=== PATIENT | female | born 1940 | race Caucasian/White ===

== ENCOUNTER 2017-09-17 14:02 | Outpatient (CLI) | payer MEDICARE ==
[~2017-09-17 14:02] MED LIST: DIPH-423 PO; FLUT16SP18 NS; IBUP-1573 PO; OMEP40CA37 PO
== END 2017-09-17 23:59 | disposition home or self-care (01) ==
LOC: CARD DIAG 14:02
PROVIDERS: ATTEND Family Medicine
DX: I08.3 Combined rheumatic disorders of mitral, aortic and tricuspid valves (principal); Z90.710 Acquired absence of both cervix and uterus
CPT/HCPCS: 93306

== ENCOUNTER 2017-09-19 08:10 | Outpatient (CLI) | payer MEDICARE ==
[2017-09-19] VITALS (8 sets, daily range): BP systolic 109–150; BP diastolic 56–78
[~2017-09-19] VITALS: Ht 170.2 cm; Wt 63.6 kg
[2017-09-19] MEDS ORDERED: normal saline 500ml IV soln 500 ML IV ONE (09:10)
[2017-09-19] MEDS ORDERED: regadenoson 0.4mg/5ml syringe IV ONE ×2 (09:10→10:22)
[2017-09-19] MEDS ORDERED: atropine 0.1mg/ml 10ml syringe IV PRN (09:15)
[2017-09-19] MEDS ORDERED: metoprolol tartrate 1mg/ml inj IV PRN (09:15)
[2017-09-19] MEDS ORDERED: CAFFEINE CITRATE 60 MG/3 ML injection vial IV ONE ×2 (09:15→10:22)
[2017-09-19] MEDS ORDERED: nitroGLYCERIN 0.4mg SUBLingual tab SL PRN (09:15)
== END 2017-09-19 23:59 | disposition home or self-care (01) ==
LOC: RAD 08:10
PROVIDERS: ATTEND Internal Medicine Cardiovascular Disease
DX: R07.9 Chest pain, unspecified (principal); R00.2 Palpitations; I95.9 Hypotension, unspecified; Z79.899 Other long term (current) drug therapy; Z90.710 Acquired absence of both cervix and uterus
CPT/HCPCS: 78452; A9500; J7030; 93017; J0461

== ENCOUNTER 2017-10-09 07:48 | Outpatient (CLI) | payer MEDICARE ==
[2017-10-09] VITALS (7 sets, daily range): BP systolic 98–142; BP diastolic 57–77
== END 2017-10-09 23:59 | disposition home or self-care (01) ==
LOC: CARD DIAG 07:48
PROVIDERS: ATTEND Internal Medicine Cardiovascular Disease
DX: R55 Syncope and collapse (principal); R06.02 Shortness of breath; R42 Dizziness and giddiness; R11.0 Nausea; Z90.710 Acquired absence of both cervix and uterus; Z79.899 Other long term (current) drug therapy
CPT/HCPCS: 93660

== ENCOUNTER 2017-11-26 09:05 | Emergency (ER) | payer MEDICARE ==
[~2017-11-26] VITALS: Ht 170.2 cm; Wt 140.0 kg
[2017-11-26] MEDS ORDERED: diltiazem 5mg/ml 5ml inj. IV ONE ×2 (09:15→10:55)
[2017-11-26 09:38] LABS: BASOPHILS % (AUTO) 0.6 % (0-1); EOSINOPHILS # (AUTO) 0.2 X10'3 (0-0.9); EOSINOPHILS % (AUTO) 2.5 % (0-6); HEMATOCRIT 45.4 % (35.0-45.0); HEMOGLOBIN 15.5 g/dl (12.0-16.0); LYMPHOCYTES # (AUTO) 2.2 X10'3 (1.1-4.8); LYMPHOCYTES % (AUTO) 28.7 % (21-51); MEAN CORPUSCULAR HEMOGLOBIN 31.1 PG (27.0-31.0); MEAN CORPUSCULAR HGB CONC 34.2 % (33.0-36.5); MEAN CORPUSCULAR VOLUME 91.2 FL (78-98); MEAN PLATELET VOLUME 9.6 FL (7.4-10.4); MONOCYTES # (AUTO) 0.9 X10'3 (0-0.9); MONOCYTES % (AUTO) 11.8 % (2-12); NEUTROPHILS # (AUTO) 4.3 X10'3 (1.8-7.7); NEUTROPHILS % (AUTO) 56.4 % (42-75); PLATELET COUNT 224 X10'3 (140-440); RED BLOOD COUNT 4.98 X10'6 (4.20-5.60); RED CELL DISTRIBUTION WIDTH 12.4 % (11.5-14.5); WHITE BLOOD COUNT 7.6 X10'3 (4.5-11.0)
[2017-11-26] MEDS ORDERED: normal saline 1000ML IV soln IVB ONE (09:40)
[2017-11-26 09:54] LABS: ALANINE AMINOTRANSFERASE 28 U/L (12-78); ALBUMIN 3.4 G/DL (3.4-5.0); ALBUMIN/GLOBULIN RATIO 0.9 (1.1-1.5); ALKALINE PHOSPHATASE 74 IU/L (46-116); ANION GAP 9 (8-16); ASPARTATE AMINO TRANSFERASE 20 U/L (10-37); BILIRUBIN,TOTAL 0.5 MG/DL (0.1-1.0); BLOOD UREA NITROGEN 19 MG/DL (7-18); BUN/CREATININE RATIO 22.1 (6.6-38.0); CALCIUM 8.9 MG/DL (8.5-10.1); CHLORIDE 106 MMOL/L (99-107); CREATININE 0.86 MG/DL (0.40-0.90); GLUCOSE 90 MG/DL (70-104); POTASSIUM 4.2 MMOL/L (3.5-5.1); SODIUM 142 MMOL/L (135-145); TOTAL CARBON DIOXIDE 26.9 MMOL/L (24-32); TOTAL PROTEIN 7.2 G/DL (6.4-8.2); eGFR 64 ML/MIN
[2017-11-26 10:00] LABS: MAGNESIUM 2.2 MG/DL (1.5-2.4)
[2017-11-26] MEDS ORDERED: digoxin 250mcg/ml 2ml ampule IV ONE (10:15)
[2017-11-26 11:39] VITALS: BP 109/65
[2017-11-26] MEDS ORDERED: DIGO125T PO (11:39)
== END 2017-11-26 12:07 | disposition home or self-care (01) ==
LOC: ER 09:06
DX: I48.91 Unspecified atrial fibrillation (principal); R42 Dizziness and giddiness; Z90.49 Acquired absence of other specified parts of digestive tract; Z90.710 Acquired absence of both cervix and uterus; Z91.040 Latex allergy status; Z91.048 Other nonmedicinal substance allergy status
CPT/HCPCS: 36415; 71045; 80053; 83735; 83880; 84484; 85025; 85610; 93005; 96361; 96374; 96375; 99285; J1160; J3490; J7030; 99291

== ENCOUNTER 2017-12-11 13:31 | Outpatient (CLI) | payer MEDICARE ==
[~2017-12-11 13:31] MED LIST changes: +CARV-50 PO; -DIPH-423 PO; +FLEC100T2 PO; -FLUT16SP18 NS; -IBUP-1573 PO
== END 2017-12-11 23:59 | disposition home or self-care (01) ==
LOC: RAD 13:31
PROVIDERS: ATTEND Family Medicine
DX: M19.012 Primary osteoarthritis, left shoulder (principal); Z90.710 Acquired absence of both cervix and uterus; Z79.899 Other long term (current) drug therapy
CPT/HCPCS: 73030